=== PATIENT | female | born 1945 | race Asian ===

== ENCOUNTER 2017-08-12 20:35 | Emergency (ER) | payer MEDICARE, OTHER ==
[2017-08-12] MEDS: ACETAMINOPHEN 500 MG TAB PO (21:53)
== END 2017-08-12 23:33 | disposition home or self-care (01) ==
LOC: FTE 20:35
DX: M54.2 Cervicalgia (principal); R07.9 Chest pain, unspecified; R51 Headache
CPT/HCPCS: 70450; 71045; 72125; 99285-25